=== PATIENT | male | born 1950 | race Caucasian/White ===

== ENCOUNTER → 2018-05-06 10:37 | Outpatient (CLI) | payer MEDICARE, OTHER, SELFPAY ==
[2018-05-06 12:05] LABS: Alanine Aminotransferase 35 IU/L (21-72); Aspartate Aminotransferase 21 IU/L (17-59); Blood Urea Nitrogen 17 mg/dL (9-20); Calcium 9.8 mg/dL (8.4-10.2); Carbon Dioxide 28 mmol/L (22-32); Chloride 104 mmol/L (98-107); Cholesterol 226 mg/dL (140-199); Estimated Glomerular Filt Rate > 60.0 mL/min (>60); Glucose 86 mg/dL (80-110); HDL Cholesterol 54 mg/dL (40-60); HEMOLYSIS < 15 (0-50); LDL Cholesterol Calculated 126 mg/dL (<100); Sodium 141 mmol/L (137-145); Triglycerides 229 mg/dL (35-150)
[2018-05-06 12:29] LABS: Hepatitis B Surface Antigen NEGATIVE s/c (NEGATIVE); Prostate Specific Antigen Scrn 1.22 ng/mL (0.1-4.0)
[2018-05-06 12:47] LABS: Hep C Virus Ab w/Reflex Quant NEGATIVE s/c (NEGATIVE)
== END ==
PROVIDERS: PCP Internal Medicine; Visit Provider Internal Medicine
DX: Z00.00 Encounter for general adult medical examination without abnormal findings (principal); B18.1 Chronic viral hepatitis B without delta-agent; Z12.5 Encounter for screening for malignant neoplasm of prostate
CPT/HCPCS: 36415; 80048; 80061; 83690; 84450; 84460; 86317; 86803; 87340; G0103

== ENCOUNTER → 2018-06-29 09:42 | Outpatient (CLI) | payer MEDICARE, OTHER, SELFPAY ==
--- NOTE | 2018-06-29 09:46 | DI.RAD.S_ITS ---
PROCEDURE: XR SHOULDER LT MIN 2V INDICATIONS: left shoulder pain TECHNIQUE: 3 views of the shoulder were acquired. COMPARISON: [facility], CR, XR SHOULDER RT MIN 2V, 06/29/2018, 9:46. FINDINGS: Bones: There is a possible Hill-Sachs fracture deformity, although evaluation is limited by arthritic changes No suspicious bony lesions. Visualized ribs appear intact. Bulky ossific spurring arising at the inferior aspect of the glenohumeral joint. There is minimal glenohumeral joint space narrowing. Moderate AC joint generation Soft tissues: No suspicious soft tissue calcifications. IMPRESSION: Degenerative changes as above including bulky osteophyte formation at the glenohumeral joint. Possible age-indeterminate Hill-Sachs fracture deformity Dictated by: Alberto Celaya M.D. on 06/29/2018 at 10:10 Approved by: Alberto Celaya M.D. on 06/29/2018 at 10:12
--- NOTE | 2018-06-29 09:46 | DI.RAD.S_ITS ---
PROCEDURE: XR SHOULDER RT MIN 2V INDICATIONS: right shoulder pain TECHNIQUE: 3 views of the shoulder were acquired. COMPARISON: [facility], CR, XR SHOULDER LT MIN 2V, 06/29/2018, 9:48. FINDINGS: Bones: No fractures or dislocations. No suspicious bony lesions. Visualized ribs appear intact. Bulky ossified formation is present. Possible small Hill-Sachs fracture deformity although the appearance is less conspicuous compared to the contralateral side. Moderate glenohumeral and acromioclavicular degenerative joint disease. Trace calcific tendinitis Soft tissues: No suspicious soft tissue calcifications. IMPRESSION: Moderate shoulder joint degeneration. Possible small Hill-Sachs fracture deformity, age-indeterminate Minimal calcific tendinitis. Dictated by: Alberto Celaya M.D. on 06/29/2018 at 10:12 Approved by: Alberto Celaay M.D. on 06/29/2018 at 10:14
--- NOTE | 2018-06-29 09:46 | DI.RAD.S_ITS ---
PROCEDURE: XR CHEST 2V INDICATIONS: asbestos exposure TECHNIQUE: 2 views of the chest were acquired. COMPARISON: None. FINDINGS: Surgical changes and devices: None. Lungs and pleura: No pleural effusions or pneumothorax. Lungs are clear. Mediastinum: Mediastinal contours are normal. Heart size is normal. Bones and chest wall: No suspicious bony abnormalities. Soft tissues appear unremarkable. IMPRESSION: No acute disease. Dictated by: Alberto Celaya M.D. on 06/29/2018 at 10:47 Approved by: Alberto Celaya M.D. on 06/29/2018 at 10:47
== END ==
PROVIDERS: PCP Family Medicine; Visit Provider Family Medicine
DX: M25.512 Pain in left shoulder (principal); M25.511 Pain in right shoulder; Z77.090 Contact with and (suspected) exposure to asbestos; M19.012 Primary osteoarthritis, left shoulder; M19.011 Primary osteoarthritis, right shoulder
CPT/HCPCS: 71046; 73030

== ENCOUNTER 2019-04-26 09:20 | Day surgery (SDC) | payer MEDICARE, OTHER, SELFPAY ==
[2019-04-26] VITALS (8 sets, daily range): BP systolic 99–143; BP diastolic 65–93; PULSE 60–96; RESP 10–16; TEMP 36.6–37.5; O2SAT 94–100; BMI 27.8
[2019-04-26] MEDS: SODIUM CHLORIDE 0.9% 1,000 ML 100 ML IV (09:45)
--- NOTE | 2019-04-26 09:53 | SUR.PREOP ---
PT STATES HE IS HEP B POSITIVE (SERUM POSITIVE, SURFACE ANTIGEN NEGATIVE).
--- NOTE | 2019-04-26 10:28 | PM.HP.1 ---
History of Present Illness Date Patient Seen: 04/26/19 Time Patient Seen: 10:28 Chief complaint: [id number] Narrative: History of colon polyps Patient History Medical History (Updated 07/07/18 @ 12:29 by Margarita Mohan) Hyperlipidemia (Chronic) Tinea versicolor (Chronic ~1968) Shoulder pain (Chronic ~2014) Tinnitus (Chronic) Hepatitis B (Resolved ~1989) Hx of type B viral hepatitis (Resolved) Measles (Resolved) Mumps (Resolved) Surgical History (Updated 07/07/18 @ 12:29 by Margarita Mohan) Cataracts, bilateral (Chronic ~2013) Anesthesia (Resolved) History of hernia surgery (Resolved ~1954) Hx of LASIK (Resolved ~1997) Family History (Updated 07/07/18 @ 12:33 by Margarita Mohan) Mother Diabetes mellitus Heart disease Grandfather Cancer Father Cancer Grandfather Heart disease Grandmother Heart disease Grandmother Stroke Social History household members: spouse Smoking Status: Never smoker Family & Social History Social History: household members spouse Tobacco & Substance use: Smoking Status Never smoker Meds Allergies Allergy/AdvReac Type Severity Reaction Status Date / Time No Known Drug Allergies Allergy Verified 04/26/19 09:25 Exam Vital Signs (past 8 hours): - 04/26/19 09:35 Temperature 98.0 F Pulse Rate 96 H Respiratory Rate 16 Blood Pressure 143/89 H Pulse Oximetry 100 Oxygen Delivery Method Room Air Narrative Exam Narrative: Oropharynx free of lesions Chest clear to auscultation percussion Cardiac exam reveals no S3 or murmur Assessment & Plan Assessment & Plan narrative: History of colon polyps need for follow-up colonoscopy. Risks, benefits, alternatives have been explained.
[2019-04-26] MEDS: MIDAZOLAM 5 MG/5 ML VIAL IV (10:29)
--- NOTE | 2019-04-26 10:29 | PM.OP.ENDO ---
Operative Date/Time/Diagnoses Date of procedure: 04/26/19 Time of procedure: 10:29 Pre-op diagnosis: See indication and findings Procedure & Clinicians Study performed: Colonoscopy Same procedure as scheduled: Yes Indications: Personal history of colon polyps sound distant family member with colon cancer Surgeon: Pratibha Davis Procedure Notes Procedure in detail: After informed consent was obtained the patient was placed in left lateral decubitus position. The video colonoscope was introduced the rectum slowly advanced cecum. On slow withdrawal mucosa was carefully examined. The scope was removed. The patient tolerated procedure well. Preparation was good Blood loss none Complications none Sedation Total sedation time 17 minutes Versed 4 mg fentanyl 100 mg IV titration Findings 1. Trivial diverticulosis in the sigmoid colon 2. Otherwise negative colonoscopy to cecum Patient will need follow-up colonoscopy in 5 years due to personal history of colonic adenomas
[2019-04-26] MEDS: fentaNYL 250 MCG/5 ML INJ IV (10:30)
--- NOTE | 2019-04-26 10:55 | SUR.PHASEI ---
to PACU, very drowsy, responsive to voice, asked appropriate question and returned to sleep. Resp even and regular, skin warm and dry.
--- NOTE | 2019-04-26 11:12 | SUR.PHASEI ---
Awake, oriented, talking appropriately, tolerating juice well. HOB elevated, resp unlabored, skin warm and dry.
== END 2019-04-26 11:34 | disposition home or self-care (01) ==
PROVIDERS: PCP Family Medicine; Visit Provider Internal Medicine Gastroenterology
PROC: 0DJD8ZZ Inspection of Lower Intestinal Tract, Via Natural or Artificial Opening Endoscopic (ICD-10-PCS; CPT 45378; principal; 2019-04-26 10:00)
DX: Z86.010 Personal history of colon polyps (principal); Z80.0 Family history of malignant neoplasm of digestive organs; K57.30 Diverticulosis of large intestine without perforation or abscess without bleeding
CPT/HCPCS: G0105; J2250; J3010

== ENCOUNTER 2019-11-14 09:10 | Day surgery (SDC) | payer MEDICARE, OTHER, SELFPAY ==
[2019-11-13 08:11] VITALS: BMI 29.4
[2019-11-14] VITALS (9 sets, daily range): BP systolic 97–130; BP diastolic 61–78; PULSE 76–99; RESP 10–16; TEMP 36.2–36.6; O2SAT 92–97; BMI 28.0
[2019-11-14] MEDS: LACTATED RINGERS 1,000 ML 100 ML IV ×2 (09:31→13:05)
--- NOTE | 2019-11-14 11:16 | SUR.OPER ---
Supine on padded OR bed, head on pillow, arm padded and tucked at side, legs uncrossed, safety belt at thigh, tape over blanket over lower legs .
[2019-11-14] MEDS: CEFAZOLIN 2 GM/100 ML FROZ.PIGGY IV (11:32)
[2019-11-14] MEDS: BUPIVACAINE 0.25% (PF) VIAL 30 ML INJ (11:53)
[2019-11-14] MEDS: fentaNYL 100 MCG/2 ML INJ IV (13:40)
[2019-11-14] MEDS: OXYCODONE IR 5 MG TABLET PO (13:48)
--- NOTE | 2019-11-14 13:52 | PM.PREOP ---
Pre-operative Note Interval Note History & Physical reviewed/Exam performed by Physician: Yes Changes to H&P: No
--- NOTE | 2019-11-14 13:52 | PM.OP.1 ---
Operative Date/Time/Diagnoses Date of procedure: 11/14/19 Time of procedure: 13:52 Pre-op diagnosis: Recurrent right inguinal hernia Post-op diagnosis: other (Recurrent bilateral inguinal hernia) Procedure & Clinicians Procedure: Transabdominal preperitoneal repair of recurrent bilateral inguinal hernia with mesh Same procedure as scheduled: Yes Indications: This is a 69-year-old male with previous bilateral inguinal hernia repair in childhood presents with a recurrent right inguinal hernia. Surgeon: Adams Florentino Click Yes if Unassisted: Yes Anesthesia Type: General Operative Notes Findings: Bilateral indirect inguinal hernias Applied: catheter Estimated Blood Loss (mL): 15 Procedure in detail: The patient was brought to the operating room and placed supine on the table. Bilateral sequential compression devices were applied. General anesthesia was induced and they were intubated with an endotracheal tube. A sanders cath was placed in sterile fashion. They received 900g clindaymycin prior to skin incision. They were prepped and draped in sterile fashion. A time out was performed to ensure the correct patient, procedure and necessary equipment within the operating room. The skin was infiltrated with 0.25% bupivicaine. A 1 cm infram umbilical midline incision was made. The umbilical stalk was elevated the fascia sharply incised and the abdomen entered traumatically. A 10mm balloon port was placed and pneumoperitoneum was established at 15mm Hg. Inspection of the abdomen demonstrated no evidence of injury upon entry. Two 5 mm ports were then placed under direct visualization in the right and left lower quadrant lateral to the rectus muscle. A right and left indirect hernias were observed. I began with the right ignuinal hernia. The vas deferns the spermatic vessels were identified and protected. The peritoneum 4 cm superior to the deep inguinal ring between the medial umbilical ligament and the anterior superior iliac spine was incised. The peritoneal flap was retracted and the preperitoneal tissue was dissected off the flap beginning lateral to the inferior epigastric artery and towards the ASIS and to posterior limit of the psoas muscle to develop the lateral aspect of the pocket. Next the peritoneum medial to the inferior epigastric was mobilized towards the median umbilical ligament to develop the medial aspect of the pocket and the direct defect was reduced. The space of Retzius was fully dissected such that the Antonio's ligament and the pubic symphysis were visible. Next, the peritoneum was mobilized off the the spermatic vessels and vas deferns. A medium Bard 3D Max mesh was then placed into the abdomen and positioned such that the myopectineal orifice was completely covered with good overlap on all sides. The mesh was anchored to the pubic tubercle and to Antonio?s ligament. The peritoneal flap was then repositioned back to its original position and tacks were used to anchor it in position such that no bowel could herniate into the preperitoneal space. The area was examined for hemostasis. The left inguinal hernia was then repaired in the same fashion. The 5mm trocars were removed under direct visualization and pneumoperitoneum was deflated through the umbilical trocar, The fascia at the umbilicus was closed with 0-Vicryl in figure of 8 fashion, skin closed with 4-0 Monocyl followed by Dermabond. The sponge and instrument count at the end of the case was correct. Both testicles were entirely within the scrotum at the end of the case. The patient emerged from anesthsia was extubated and transferred to recovery in stable condition. Complications: none Post-operative Condition: stable Disposition: same day surgery
--- NOTE | 2019-11-14 15:36 | SUR.PHASEII ---
After 15 minutes of unsuccessful attempts to urinate per MD's order, Dr Florentino cleared pt for DC siting the close proximity to the hospital and the fact that he had been catheterized during his procedure. Pt was given instructions by Dr Florentino that if he was unable to urinate between 6-8 hours post procedure he was to go to the ED for further evaluation. Pt agreed. I asked the pt to try once again when he arrived home and if successful to call us. Number and and hat provided to pt. He was assisted to [facility] and escorted to ED entrance in stable condition.
--- NOTE | 2019-11-14 17:54 | SUR.PHASEII ---
Patient's spouse called and reported patient able to void a couple of drops. Patient denies feeling uncomfortable. They will notify this RN of progress.
--- NOTE | 2019-11-14 19:37 | SUR.PHASEII ---
Cassandra called and stated the patient has not voided. Recommended patient call the surgeon to discuss options.
== END 2019-11-14 15:36 | disposition home or self-care (01) ==
PROVIDERS: PCP Family Medicine; Referring Provider Surgery; Visit Provider Surgery
PROC: 0YQ64ZZ Repair Left Inguinal Region, Percutaneous Endoscopic Approach (ICD-10-PCS; CPT 49651; principal; 2019-11-14 10:15)
DX: K40.91 Unilateral inguinal hernia, without obstruction or gangrene, recurrent (principal)
CPT/HCPCS: 49651; C1781; J0330; J0690; J1100; J1885; J2250; J2405; J2704; J3010

== ENCOUNTER → 2019-11-24 07:53 | Outpatient (CLI) | payer MEDICARE, OTHER, SELFPAY ==
[2019-11-24 09:21] LABS: Cholesterol 246 mg/dL (140-199); Glucose 95 mg/dL (80-110); HDL Cholesterol 34 mg/dL (40-60); LDL Cholesterol Calculated 132 mg/dL (<100); Triglycerides 399 mg/dL (35-150)
== END ==
PROVIDERS: PCP Family Medicine; Referring Provider Family Medicine; Visit Provider Family Medicine
DX: Z13.1 Encounter for screening for diabetes mellitus (principal); E78.5 Hyperlipidemia, unspecified
CPT/HCPCS: 36415; 80061; 82947

== ENCOUNTER → 2020-01-17 07:54 | Outpatient (CLI) | payer MEDICARE, OTHER, SELFPAY ==
[2020-01-17 08:25] LABS: BUN Creatinine Ratio 13.9 (6-22); Blood Urea Nitrogen 14 mg/dL (9-20); Estimated Glomerular Filt Rate > 60.0 mL/min (>60)
--- NOTE | 2020-01-17 09:09 | DI.CT.S_ITS ---
PROCEDURE: CT ABDOMEN PELVIS W CON INDICATIONS: Right groin bulge s/p repair of recurrent hernia TECHNIQUE: After the administration of oral and intravenous contrast, 5 mm thick sections acquired from the diaphragms to the symphysis. 5 mm thick coronal and sagittal reformats were performed. For radiation dose reduction, the following was used: automated exposure control, adjustment of mA and/or kV according to patient size. COMPARISON: None. FINDINGS: Image quality: Excellent. ABDOMEN: Lung bases: Lung bases are clear. Heart size is normal. Solid organs: Liver is normal in size and enhancement. Note is made of a small water density cyst adjacent to the superior aspect of the intrahepatic IVC measuring slightly over 1 cm. Gallbladder appears normal. Biliary system is non-dilated. Pancreas enhances normally. Spleen is normal in size and enhancement. No adrenal nodules. Kidneys are normal in size and enhancement, without hydronephrosis. Peritoneum and bowel: Stomach, small bowel, and colon loops are normal in caliber and wall thickness. No free fluid or air. Nodes and vessels: No retroperitoneal or mesenteric adenopathy. Aorta and inferior vena cava are normal in caliber. Miscellaneous: No ventral hernias. PELVIS: Genitourinary: Bladder wall thickness is normal. Miscellaneous: No inguinal hernias or adenopathy. Normal appendix right lower quadrant. Note is made of postsurgical changes at the fatty soft tissues of the right anterior lower pelvis near the internal os of the inguinal canal. A recurrent herniation is not seen. Bones: No suspicious bony lesions. No vertebral body compression fractures. IMPRESSION: Postsurgical changes internal os region of the right inguinal canal. Preoperative CT or ultrasound scanning is not available for review. No postsurgical recurrent hernia identified. A normal appendix is found. Source of current symptoms is not seen. Dictated by: Facundo Patel M.D. on 01/17/2020 at 11:18 Approved by: Facundo Patel M.D. on 01/17/2020 at 11:22
== END ==
PROVIDERS: PCP Family Medicine; Referring Provider Surgery; Visit Provider Surgery
DX: R19.03 Right lower quadrant abdominal swelling, mass and lump (principal); R10.30 Lower abdominal pain, unspecified; Z98.890 Other specified postprocedural states
CPT/HCPCS: 36415; 74177; 82565; 84520; Q9967

== ENCOUNTER → 2020-11-08 14:42 | Outpatient (CLI) | payer MEDICARE, OTHER, SELFPAY ==
[2020-11-08] MEDS: COVID-19 VACC #1, MRNA(MOD) 100 MCG/0.5 ML VIAL IM (14:46)
== END ==
PROVIDERS: PCP Family Medicine; Visit Provider Internal Medicine
DX: Z23 Encounter for immunization (principal)
CPT/HCPCS: 0011A; 91301

== ENCOUNTER → 2020-12-05 11:15 | Outpatient (CLI) | payer MEDICARE, OTHER, SELFPAY ==
[2020-12-05] MEDS: COVID-19 VACC #2, MRNA(MOD) 100 MCG/0.5 ML VIAL IM (11:37)
== END ==
PROVIDERS: PCP Family Medicine; Visit Provider Internal Medicine
DX: Z23 Encounter for immunization (principal)
CPT/HCPCS: 0012A; 91301

== ENCOUNTER → 2021-05-22 06:59 | Outpatient (CLI) | payer MEDICARE, OTHER, SELFPAY ==
[2021-05-22 08:44] LABS: Cholesterol 212 mg/dL (140-199); HDL Cholesterol 48 mg/dL (40-60); LDL Cholesterol Calculated 133 mg/dL (<100); Triglycerides 155 mg/dL (35-150)
== END ==
PROVIDERS: PCP Family Medicine; Referring Provider Family Medicine; Visit Provider Family Medicine
DX: E78.5 Hyperlipidemia, unspecified (principal); Z51.81 Encounter for therapeutic drug level monitoring
CPT/HCPCS: 36415; 80061

== ENCOUNTER → 2021-06-03 14:01 | Outpatient (CLI) | payer MEDICARE, OTHER, SELFPAY ==
--- NOTE | 2021-06-03 14:03 | DI.RAD.S_ITS ---
PROCEDURE: XR SHOULDER RT MIN 2V INDICATIONS: bilateral shoulder pain TECHNIQUE: Three views of the shoulder were acquired. COMPARISON: [facility], CR, XR SHOULDER LT MIN 2V, 06/29/2018, 9:48. FINDINGS: Bones: No fractures or dislocations. No suspicious bony lesions. Visualized ribs appear intact. Prominent inferior glenohumeral joint spur formation. Moderate glenohumeral joint space loss. Aspherical morphology of the femoral head and cortical indentations of the articular surface. Subcortical cystic change in the superior glenoid fossa. Mild AC joint degeneration. Soft tissues: No suspicious soft tissue calcifications. IMPRESSION: Moderate glenohumeral joint degeneration And mild AC joint degeneration. Dictated by: Itzel Byers M.D. on 06/03/2021 at 17:03 Approved by: Itzel Byers M.D. on 06/03/2021 at 17:06
--- NOTE | 2021-06-03 14:03 | DI.RAD.S_ITS ---
PROCEDURE: XR SHOULDER LT MIN 2V INDICATIONS: bilateral shoulder pain TECHNIQUE: Three views of the shoulder were acquired. COMPARISON: [facility], CR, XR SHOULDER LT MIN 2V, 06/29/2018, 9:48. FINDINGS: Bones: No fractures or dislocations. No suspicious bony lesions. Visualized ribs appear intact. Prominent inferior osteophytosis. Stable humeral head morphology suggesting possible remote Hill-Sachs deformity. Soft tissues: No suspicious soft tissue calcifications. IMPRESSION: 1. No significant progression of moderate osteoarthritic changes in the left glenohumeral joint. 2. Deformity suggesting remote Hill-Sachs fracture. Dictated by: Itzel Byers M.D. on 06/03/2021 at 17:01 Approved by: Itzel Byers M.D. on 06/03/2021 at 17:03
== END ==
PROVIDERS: PCP Family Medicine; Referring Provider Family Medicine; Visit Provider Family Medicine
DX: M25.511 Pain in right shoulder (principal); M19.011 Primary osteoarthritis, right shoulder; M25.512 Pain in left shoulder
CPT/HCPCS: 73030

== ENCOUNTER → 2021-08-27 07:50 | Outpatient (CLI) | payer MEDICARE, OTHER, SELFPAY ==
[2021-08-27 10:59] LABS: Alanine Aminotransferase 21 IU/L (<50); Albumin 4.1 g/dL (3.5-5.0); Albumin Globulin Ratio 1.7 (1.0-2.8); Alkaline Phosphatase 50 U/L (38-126); Aspartate Aminotransferase 22 IU/L (17-59); BUN Creatinine Ratio 19.4 (6-22); Bilirubin Total 0.6 mg/dL (0.2-1.3); Blood Urea Nitrogen 20 mg/dL (9-20); Calcium 9.7 mg/dL (8.4-10.2); Carbon Dioxide 31 mmol/L (22-32); Chloride 103 mmol/L (98-107); Cholesterol 142 mg/dL (140-199); Estimated Glomerular Filt Rate > 60.0 mL/min (>60); Globulin 2.4 g/dL (1.7-4.1); Glucose 87 mg/dL (80-110); HDL Cholesterol 39 mg/dL (40-60); HEMOLYSIS < 15 (0-50); LDL Cholesterol Calculated 67 mg/dL (<100); Potassium 4.6 mmol/L (3.4-5.1); Sodium 139 mmol/L (137-145); Total Protein 6.5 g/dL (6.3-8.2); Triglycerides 178 mg/dL (35-150)
== END ==
PROVIDERS: PCP Family Medicine; Referring Provider Family Medicine; Visit Provider Family Medicine
DX: E78.5 Hyperlipidemia, unspecified (principal)
CPT/HCPCS: 36415; 80053; 80061

== ENCOUNTER → 2021-11-28 08:17 | Outpatient (CLI) | payer MEDICARE, OTHER, SELFPAY ==
[2021-11-28 10:08] LABS: Cholesterol 140 mg/dL (140-199); HDL Cholesterol 40 mg/dL (40-60); LDL Cholesterol Calculated 67 mg/dL (<100); Triglycerides 164 mg/dL (35-150)
== END ==
PROVIDERS: PCP Family Medicine; Referring Provider Family Medicine; Visit Provider Family Medicine
DX: E78.5 Hyperlipidemia, unspecified (principal)
CPT/HCPCS: 36415; 80061

== ENCOUNTER → 2022-03-05 08:14 | Outpatient (CLI) | payer MEDICARE, OTHER, SELFPAY ==
[2022-03-05 09:39] LABS: Cholesterol 137 mg/dL (140-199); HDL Cholesterol 42 mg/dL (40-60); LDL Cholesterol Calculated 68 mg/dL (<100); Triglycerides 136 mg/dL (35-150)
== END ==
PROVIDERS: PCP Family Medicine; Referring Provider Family Medicine; Visit Provider Family Medicine
DX: E78.5 Hyperlipidemia, unspecified (principal)
CPT/HCPCS: 36415; 80061

== ENCOUNTER → 2022-11-19 09:53 | Outpatient (CLI) | payer MEDICARE, OTHER, SELFPAY ==
[2022-11-19 10:27] LABS: Add Manual Diff / Slide Review NO; Basophils Absolute Auto 100 /uL (0-100); Basophils Percent Auto 0.7 % (0-2); Eosinophils Absolute Auto 200 /uL (0-450); Eosinophils Percent Auto 3.4 % (2-4); Hemoglobin 15.4 g/dL (13.5-17.5); Lymphocytes Absolute Auto 1700 /uL (1100-4500); Lymphocytes Percent Auto 24.2 % (25-40); Mean Corpuscular HGB Conc 34.1 % (30-36); Mean Corpuscular Hemoglobin 29.9 PG (26-34); Mean Corpuscular Volume 87.6 fL (80-100); Monocytes Absolute Auto 500 /uL (0-900); Monocytes Percent Auto 7.6 % (3-14); Neutrophils Absolute Auto 4500 /uL (1500-7000); Neutrophils Percent Auto 64.1 % (50-75); Platelet Count 288 X10^3/uL (150-400); Red Blood Cell Count 5.14 X10^6/uL (4.5-5.9); Red Cell Distribution Width 13.8 % (11.6-14.8)
[2022-11-19 12:15] LABS: Alanine Aminotransferase 22 IU/L (<50); Albumin 4.2 g/dL (3.5-5.0); Albumin Globulin Ratio 1.7 (1.0-2.8); Alkaline Phosphatase 59 U/L (38-126); Aspartate Aminotransferase 22 IU/L (17-59); BUN Creatinine Ratio 22.6 (6-22); Bilirubin Total 0.6 mg/dL (0.2-1.3); Blood Urea Nitrogen 21 mg/dL (9-20); Calcium 9.2 mg/dL (8.4-10.2); Carbon Dioxide 28 mmol/L (22-32); Chloride 104 mmol/L (98-107); Cholesterol 138 mg/dL (140-199); Estimated Glomerular Filt Rate > 60 mL/min (>60); Globulin 2.5 g/dL (1.7-4.1); Glucose 80 mg/dL (80-110); HDL Cholesterol 46 mg/dL (40-60); HEMOLYSIS < 15 (0-50); LDL Cholesterol Calculated 65 mg/dL (<100); Potassium 4.8 mmol/L (3.4-5.1); Sodium 141 mmol/L (137-145); Total Protein 6.7 g/dL (6.3-8.2); Triglycerides 134 mg/dL (35-150)
== END ==
PROVIDERS: PCP Family Medicine; Referring Provider Family Medicine; Visit Provider Family Medicine
DX: E78.5 Hyperlipidemia, unspecified (principal); Z79.899 Other long term (current) drug therapy
CPT/HCPCS: 36415; 80053; 80061; 85025

== ENCOUNTER → 2023-06-02 09:23 | Outpatient (CLI) | payer MEDICARE, OTHER, SELFPAY ==
--- NOTE | 2023-06-02 | DI.ECHO.S_ITS ---
[facility]---------+ [facility] +---------+ : : [address] [place] : : : : [id number] : : : : Phone: [phone]---------+ Echocardiogram Report + + :Name: SERGIO AYALA JR Study Date: 06/02/2023 Height: 72.5 in: :[facility] ReadingLocation: Weight: 208 lb : : Gender: Male BSA: 2.2 m2 : :: 1950 Age: 72 yrs BP: 127/90 mmHg: :Reason For Study: ABNORMAL ELECTROCARDIOGRAM : :Ordering Physician: LILLIAN, : :LUZ Performed By: Yvette Lloyd : :Referring: LUZ HOFFMAN : + + Interpretation Summary 1) Normal left ventricular thickness, size, wall motion, and systolic function (EF 60-65%). 2) Upper normal right ventricular size with normal function. 3) No significant valvular abnormalities. 4) No prior Echo available for comparison. Procedure: A two-dimensional transthoracic echocardiogram with color flow and Doppler was performed. The study quality was technically adequate. There is no prior echocardiogram noted for this patient. The patient was in sinus bradycardia with heart rates between 54-61 bpm during the exam. Left Ventricle: The left ventricle is normal in size and wall thickness. The ejection fraction is estimated to be 60-65%. Left ventricular systolic function appears normal without focal wall motion abnormalities. Diastolic parameters suggest a relaxation abnormality of the left ventricle, consistent with probable normal filling pressures. Right Ventricle: The right ventricle is at the upper limits of normal in size. The right ventricular systolic function is normal. Atria: The left atrial size is normal. Right atrial size is normal. There is no Doppler evidence for an interatrial shunt. Mitral Valve: The mitral valve is normal in structure and function. There is trace mitral regurgitation. Aortic Valve: The aortic valve is trileaflet. The aortic valve opens well. There is no aortic valve stenosis. No aortic regurgitation is present. Tricuspid Valve: The tricuspid valve is normal in structure and function. There is trace tricuspid regurgitation. Pulmonary artery pressures cannot be estimated because of the lack of a measurable TR jet velocity. Pulmonic Valve: The pulmonic valve is not well seen, but is grossly normal. There is mild pulmonic regurgitation. Great Vessels: The aortic root is normal size. The dimensions of the ascending aorta are normal. The inferior vena cava was not well visualized. Pericardium/ Pleura There is no pericardial effusion. There is no pleural effusion. MMode/2D Measurements & Calculations LVIDd: 5.0 cm LVOT diam: 2.2 cm LVIDs: 3.4 cm Ao root diam: 3.2 cm FS: 31.6 % asc Aorta Diam: 3.3 cm IVSd: 0.83 cm Ao Arch Diam (Prox Trans): 3.2 cm LVPWd: 0.98 cm LV correa. diameter/BSA (cm/m^2): 2.3 LV sys. diameter/BSA (cm/m^2): 1.6 LA A2 area: 22.6 cm2 RA long axis: 5.4 cm LA A4 area: 19.1 cm2 RA area: 15.3 cm2 LA length (vol): 5.7 cm RA vol: 37.0 ml LA vol: 64.5 ml RA : 17.0 ml/m2 LA vol index: 29.6 ml/m2 RVD1 (basal): 4.0 cm RVD2 (mid): 3.5 cm TAPSE: 2.4 cm Doppler Measurements & Calculations Ao V2 max: 145.9 cm/sec LVOT Max Sotero: 94.8 cm/sec Ao V2 mean: 108.2 cm/sec LV V1 max P.6 mmHg Ao max P.5 mmHg LV V1 VTI: 21.3 cm Ao mean P.0 mmHg JALEN(I,D): 2.6 cm2 Ao V2 VTI: 32.1 cm JALEN(V,D): 2.6 cm2 sev ratio: 0.66 JALEN indexed to BSA (cm^2/m^2): 1.2 MV E max sotero: 83.2 cm/sec PA V2 max: 130.1 cm/sec MV A max sotero: 81.0 cm/sec PA V2 mean: 81.2 cm/sec MV E/A: 1.0 PA mean P.1 mmHg Med Peak E' Sotero: 6.9 cm/sec PA pr(Accel): 34.5 mmHg E/E' med: 12.0 Lat Peak E' Sotero: 7.6 cm/sec E/E' lat: 10.9 E/e' average: 11.4 MV dec time: 0.25 sec SV(LVOT): 84.3 ml Reading Physician:12:43 PM
== END ==
PROVIDERS: PCP Family Medicine; Referring Provider Internal Medicine Cardiovascular Disease; Visit Provider Internal Medicine Cardiovascular Disease
DX: R94.31 Abnormal electrocardiogram [ECG] [EKG] (principal); E78.5 Hyperlipidemia, unspecified; I37.1 Nonrheumatic pulmonary valve insufficiency
CPT/HCPCS: 93306

== ENCOUNTER → 2023-06-09 15:13 | Outpatient (CLI) | payer MEDICARE, OTHER, SELFPAY ==
--- NOTE | 2023-06-10 08:23 | DI.NM.S_ITS ---
DATE OF SERVICE: 06/09/2023 PROCEDURE: Exercise stress test. INDICATIONS: Abnormal EKG, hyperlipidemia. CARDIAC STRESS: Patient underwent exercise stress test under the supervision of an attending staff. He walked on Carlos protocol for 9 minutes and 15 seconds, achieved 101% of target heart rate with maximum heart rate 148. Resting blood pressure 118/80. Peak blood pressure 200/100 mmHg. RADHA -40%. Achieved 10.1 METS of workload. Baseline rhythm sinus with almost QS complexes in leads L3 and aVF. During stress, no convincing ischemic changes seen. Occasional PVCs and ventricular couplets without any complex arrhythmias like ventricular tachycardia or atrial fibrillation. No anginal symptoms. The patient felt fatigue. CONCLUSION: Exercise stress test is negative for inducible ischemia. Hypertensive blood pressure response. Excellent exercise capacity. Functional aerobic impairment -40%. No anginal symptoms. No complex arrhythmias. Overall, low-risk exercise stress test. Flo Luevano Jr - INDERJIT/em/ambreen doc#: [id number]/job#: [id number] dd: 06/09/2023 16:49:00 dt: 06/09/2023 20:39:00 DICTATING /COPIES TO: Tere Ayala MD COPIES MNE: DORINA;
== END ==
PROVIDERS: PCP Family Medicine; Referring Provider Internal Medicine Cardiovascular Disease; Visit Provider Internal Medicine Cardiovascular Disease
DX: R94.31 Abnormal electrocardiogram [ECG] [EKG] (principal); E78.5 Hyperlipidemia, unspecified
CPT/HCPCS: 93017

== ENCOUNTER 2024-02-15 11:52 | Day surgery (SDC) | payer MEDICARE, SELFPAY ==
[2024-02-15 12:22] VITALS: BP 127/82; PULSE 81; RESP 16; TEMP 36.3; O2SAT 96
--- NOTE | 2024-02-15 12:26 | P.HP_ITS ---
History of Present Illness History of Present Illness Date Patient Seen: 02/15/24 Time Patient Seen: 12:26 Chief complaint: Colonoscopy Narrative: 73-year-old man personal history of colonic polyps here for screening colonoscopy. Last colonoscopy 2018. His grandfather had colon cancer no first- degree family members. No abdominal concerns today. [facility] Medical History Shoulder pain (~2014) Mumps Measles Hepatitis B (~1989) Tinnitus Hx of type B viral hepatitis Hyperlipidemia Tinea versicolor (~1968) Surgical History History of colonoscopy (~2018) Anesthesia Hx of LASIK (~1997) History of hernia surgery (~1954) Cataracts, bilateral (~2013) Family History Mother Diabetes mellitus Heart disease Grandfather Cancer Father Cancer Grandfather Heart disease Grandmother Heart disease Grandmother Stroke Social History marital status: number of children: 0 household members: spouse lives independently: Yes caregiver/support person: No housing: house pets and animals: Yes education level: college occupational status: previously employed Smoking Status: Never smoker second hand exposure: No alcohol intake: current substance use type: does not use Meds Home Medications and Allergies Home Medications Medication Instructions Recorded Confirmed Type cholecalciferol (vitamin D3) 50 50 mcg PO DAILY 09/02/21 02/15/24 History mcg (2,000 unit) capsule rosuvastatin 20 mg tablet 20 mg PO ONCE PM 02/15/24 02/15/24 History Allergies Allergy/AdvReac Type Severity Reaction Status Date / Time No Known Drug Allergies Allergy Verified 02/15/24 12:13 Exam Vital Signs (past 8 hours): - 02/15/24 12:22 Temperature 97.3 F L Pulse Rate 81 Respiratory Rate 16 Blood Pressure 127/82 Pulse Oximetry 96 Oxygen Delivery Method Room Air Oxygen Delivery Method Room Air Narrative Exam Narrative: General adult man alert oriented no acute distress Chest nonlabored respiration Extremities warm well perfused Assessment & Plan Assessment & Plan narrative: The patient requires colorectal screening and colonoscopy is recommended. Technical details were discussed. Risks, benefits, alternatives explained. Risks including but not limited to myocardial infarction, aspiration, bleeding, pain, missed lesion, incomplete examination, need for further radiographic studies, intestinal injury, and need for major abdominal surgery were discussed. All questions were answered to their satisfaction, and they are in agreement with this plan.
--- NOTE | 2024-02-15 12:30 | P.OP.COLON_ITS ---
Operative Date/Time/Diagnoses Date of procedure: 02/15/24 Time of procedure: 12:30 Pre-op diagnosis: Personal history of colonic polyps Procedure & Clinicians Study performed: Screening colonoscopy Same procedure as scheduled: Yes Indications: Colorectal screening Personal history of colonic polyps Surgeon: Adams Florentino Procedure Notes Procedure in detail: The history and physical was performed/updated and the patient is ASA class is 2. The procedure was discussed in detail with the patient. Potential risks complications including infection, bleeding, missed diagnosis, perforation, need for surgery, and were explained. Their questions were answered and informed consent was obtained. Patient was brought to the procedure room and placed standard monitoring equipment. The patient's vital signs were monitored continuously throughout the entire procedure. Prior to starting time-out was performed. The patient was placed in the left lateral recumbent position. Procedural sedation was administered by anesthesia. Examination began with a thorough inspection of the perianal area there was no evidence of fissures, fistulae, external hemorrhoids or cutaneous malignancy. The colonoscopy scope was then placed into the anal canal and was advanced to the cecum, which was identified by the ileocecal valve, the appendiceal orifice and the confluence of the taenia. The scope was then slowly withdrawn examining colon thoroughly in all directions, irrigating it of any residual stool. The scope was retroflexed within the rectum The patient tolerated the procedure well. They will be discharged once criteria are met. The prep was of good/excellent quality. The withdrawl time was 7 minutes. FINDINGS * No masses or polyps * Mild diverticulosis of sigmoid colon * Internal hemorrhoids Findings: divertiulosis Specimen(s): none sent Impression: Diverticulosis Post-procedure Recommendations: Colonoscopy in 5 years and High fiber diet Disposition: same day surgery
[2024-02-15 12:54] VITALS: BP 106/67; PULSE 67; RESP 19; TEMP 36.2; O2SAT 94
[2024-02-15 13:02] VITALS: BP 102/72; PULSE 74; RESP 14; TEMP 36.3; O2SAT 94
[2024-02-15 13:08] VITALS: BP 131/76; PULSE 74; RESP 14; TEMP 36.2; O2SAT 96
== END 2024-02-15 13:17 | disposition home or self-care (01) ==
PROVIDERS: PCP Family Medicine; Referring Provider Surgery; Visit Provider Surgery
PROC: 0DJD8ZZ Inspection of Lower Intestinal Tract, Via Natural or Artificial Opening Endoscopic (ICD-10-PCS; CPT 45378; principal; 2024-02-15 12:45)
DX: Z12.11 Encounter for screening for malignant neoplasm of colon (principal); Z86.010 Personal history of colon polyps; K57.30 Diverticulosis of large intestine without perforation or abscess without bleeding; K64.8 Other hemorrhoids
CPT/HCPCS: G0105; J2704

== ENCOUNTER → 2024-03-10 09:17 | Outpatient (CLI) | payer MEDICARE, SELFPAY ==
[2024-03-10 10:44] LABS: Hemoglobin A1C% w Est Avg Glu 5.5 % (4.0-6.0)
[2024-03-10 11:04] LABS: Alanine Aminotransferase 20 IU/L (<50); Albumin 4.4 g/dL (3.5-5.0); Alkaline Phosphatase 51 U/L (38-126); Aspartate Aminotransferase 23 IU/L (17-59); BUN Creatinine Ratio 18.3 (6-22); Bilirubin Total 0.8 mg/dL (0.2-1.3); Blood Urea Nitrogen 20 mg/dL (9-20); Calcium 9.3 mg/dL (8.4-10.2); Carbon Dioxide 24 mmol/L (22-32); Chloride 110 mmol/L (98-107); Cholesterol 114 mg/dL (140-199); Estimated Glomerular Filt Rate > 60 mL/min (>60); Globulin 2.2 g/dL (1.7-4.1); Glucose 92 mg/dL (80-110); HDL Cholesterol 47 mg/dL (40-60); HEMOLYSIS < 15 (0-50); LDL Cholesterol Calculated 42 mg/dL (<100); Potassium 4.5 mmol/L (3.4-5.1); Sodium 140 mmol/L (137-145); Total Protein 6.6 g/dL (6.3-8.2); Triglycerides 125 mg/dL (35-150)
[2024-03-14 07:21] LABS: Insulin Level Total 12.6 uIU/mL (2.6-24.9)
== END ==
PROVIDERS: PCP Family Medicine; Referring Provider Family Medicine; Visit Provider Family Medicine
DX: Z13.1 Encounter for screening for diabetes mellitus (principal); Z79.899 Other long term (current) drug therapy; E78.5 Hyperlipidemia, unspecified
CPT/HCPCS: 36415; 80053; 80061; 83036; 83525

== ENCOUNTER → 2024-09-29 08:32 | Outpatient (CLI) | payer MEDICARE, SELFPAY ==
[2024-09-29 09:45] LABS: Hemoglobin A1C% w Est Avg Glu 5.3 % (4.0-6.0)
[2024-09-29 09:47] LABS: Alanine Aminotransferase 20 IU/L (<50); Albumin 4.1 g/dL (3.5-5.0); Albumin Globulin Ratio 1.9 (1.0-2.8); Alkaline Phosphatase 46 U/L (38-126); Aspartate Aminotransferase 24 IU/L (17-59); BUN Creatinine Ratio 23.3 (6-22); Bilirubin Total 0.6 mg/dL (0.2-1.3); Blood Urea Nitrogen 24 mg/dL (9-20); Calcium 9.6 mg/dL (8.4-10.2); Carbon Dioxide 28 mmol/L (22-32); Chloride 106 mmol/L (98-107); Cholesterol 127 mg/dL (140-199); Estimated Glomerular Filt Rate > 60 mL/min (>60); Globulin 2.2 g/dL (1.7-4.1); Glucose 91 mg/dL (80-110); HDL Cholesterol 44 mg/dL (40-60); HEMOLYSIS < 15 (0-50); LDL Cholesterol Calculated 58 mg/dL (<100); Potassium 4.5 mmol/L (3.4-5.1); Sodium 140 mmol/L (137-145); Total Protein 6.3 g/dL (6.3-8.2); Triglycerides 124 mg/dL (35-150)
[2024-09-29 10:19] LABS: Prostate Specific Antigen Scrn 1.96 ng/mL (0.1-4.0)
[2024-10-01 07:36] LABS: Insulin Level Total 9.6 uIU/mL (2.6-24.9)
== END ==
PROVIDERS: PCP Family Medicine; Referring Provider Family Medicine; Visit Provider Family Medicine
DX: Z13.1 Encounter for screening for diabetes mellitus (principal); E78.5 Hyperlipidemia, unspecified; Z12.5 Encounter for screening for malignant neoplasm of prostate
CPT/HCPCS: 36415; 80053; 80061; 83036; 83525; G0103

== ENCOUNTER → 2025-01-08 15:41 | Outpatient (CLI) | payer MEDICARE, SELFPAY ==
--- NOTE | 2025-01-08 15:43 | DI.US.S_ITS ---
PROCEDURE: US SCROTUM INDICATIONS: left testicular enlargement TECHNIQUE: Real-time scanning was performed of the scrotum and testicles, with image documentation. Color and pulse Doppler interrogation was performed of both testicles. COMPARISON: None. FINDINGS: Right: Testicle is normal in size at 3.8 x 2.0 x 3.3 cm, and homogenous in echotexture. Epididymis is normal in overall size and morphology. 5 mm right epididymal head cyst is seen. Small right hydrocele. No varicoceles. Overlying scrotal skin is normal in thickness. Left: Testicle is normal in size at 4.0 x 2.9 x 3.1 cm, and homogeneous in echotexture. Epididymis is normal in overall size and morphology. 5 mm left epididymal head cyst. Large left hydroceles. No varicoceles. Overlying scrotal skin is normal in thickness. Doppler: Color and pulse Doppler demonstrate normal and symmetric arterial flow in both testicles. IMPRESSION: 1. Large left hydrocele and small right hydrocele. Normal appearing bilateral testes. 2. Simple cysts in bilateral epididymal heads. Dictated by: Joe Gu M.D. on 01/08/2025 at 17:39 Approved by: Joe Gu M.D. on 01/08/2025 at 17:41
== END ==
PROVIDERS: PCP Family Medicine; Referring Provider Family Medicine; Visit Provider Family Medicine
DX: N50.89 Other specified disorders of the male genital organs (principal); N43.3 Hydrocele, unspecified; N50.3 Cyst of epididymis
CPT/HCPCS: 76870

== ENCOUNTER → 2025-01-31 06:57 | Outpatient (CLI) | payer MEDICARE, SELFPAY ==
[2025-01-31 08:44] LABS: Cholesterol 226 mg/dL (140-199); HDL Cholesterol 44 mg/dL (40-60); LDL Cholesterol Calculated 158 mg/dL (<100); Triglycerides 118 mg/dL (35-150)
== END ==
PROVIDERS: PCP Family Medicine; Referring Provider Family Medicine; Visit Provider Family Medicine
DX: E78.5 Hyperlipidemia, unspecified (principal)
CPT/HCPCS: 36415; 80061

== ENCOUNTER → 2025-05-03 06:42 | Outpatient (CLI) | payer MEDICARE, SELFPAY ==
[2025-05-03 08:57] LABS: Alanine Aminotransferase 21 IU/L (<50); Albumin 4.1 g/dL (3.5-5.0); Albumin Globulin Ratio 1.9 (1.0-2.8); Alkaline Phosphatase 45 U/L (38-126); Blood Urea Nitrogen 21 mg/dL (9-20); Calcium 9.1 mg/dL (8.4-10.2); Carbon Dioxide 28 mmol/L (22-32); Chloride 106 mmol/L (98-107); Cholesterol 120 mg/dL (140-199); Estimated Glomerular Filt Rate > 60 mL/min (>60); Globulin 2.2 g/dL (1.7-4.1); Glucose 86 mg/dL (70-99); HDL Cholesterol 43 mg/dL (40-60); HEMOLYSIS < 15 (0-50); Potassium 4.6 mmol/L (3.4-5.1); Sodium 141 mmol/L (137-145); Total Protein 6.3 g/dL (6.3-8.2); Triglycerides 90 mg/dL (35-150)
== END ==
PROVIDERS: PCP Family Medicine; Referring Provider Family Medicine; Visit Provider Family Medicine
DX: E78.5 Hyperlipidemia, unspecified (principal)
CPT/HCPCS: 36415; 80053; 80061

== ENCOUNTER → 2025-08-07 07:11 | Outpatient (CLI) | payer MEDICARE, SELFPAY ==
[2025-08-07 08:48] LABS: Cholesterol 127 mg/dL (140-199); HDL Cholesterol 49 mg/dL (40-60); Triglycerides 132 mg/dL (35-150)
== END ==
PROVIDERS: PCP Family Medicine; Referring Provider Family Medicine; Visit Provider Internal Medicine Cardiovascular Disease
DX: E78.5 Hyperlipidemia, unspecified (principal); I25.10 Atherosclerotic heart disease of native coronary artery without angina pectoris
CPT/HCPCS: 36415; 80061; 83695